=== PATIENT | male | born 1965 | race Two or more races ===

== ENCOUNTER 2018-09-25 21:31 | Emergency (ER) | payer MEDICARE, MEDICAID ==
[~2018-09-25] VITALS: Ht 188 cm; Wt 74.8 kg
[~2018-09-25 21:31] MED LIST: ACET1TAB12 PO; DALF10TA PO; INTE44DI SQ; PRED10TA PO; VITAMIN D2 PO; [UNRECOGNIZED DRUG - OTHER] PO
[2018-09-25] MEDS ORDERED: [UNRECOGNIZED DRUG - REMARK] (21:47)
[2018-09-25] MEDS ORDERED: MIRA25TA PO (21:50)
--- NOTE | 2018-09-25 23:07 | NUR ---
Pt provided urine sample, sent to lab.
[2018-09-25 23:11] LABS: *BILIRUBIN,URIN NEGATIVE (NEGATIVE); *BLOOD, URINE NEGATIVE (NEGATIVE); *CLARITY,URINE CLOUDY (CLEAR); *COLOR,URINE YELLOW (YELLOW); *KETONES,URINE NEGATIVE (NEGATIVE); LEUKOCYTE ESTERASE ,URINE NEGATIVE (NEGATIVE); NITRITE, URINE NEGATIVE (NEGATIVE); UGLUCOSE NEGATIVE (NEGATIVE)
[2018-09-25 23:18] LABS: BACTERIA,URINE NONE SEEN /HPF (NONE SEEN); MUCUS,URINE FEW /LPF (0-FEW); RBC,URINE 0-3 /HPF (0-3); SQUAMOUS EPITHELIAL CELL,UR FEW /HPF (NONE SEEN); URINE AMORPHOUS PHOSPHATES MODERATE /HPF; WBC,URINE 0-3 /HPF (0-3)
--- NOTE | 2018-09-25 23:37 | NUR ---
Patient discharged to home in stable conditon. Written and verbal after care instructions given. Patient verbalizes understanding of instructions. Pt ambulated out of ER with walker, no falls noted, accompanied by family, no acute signs of distress, VSS, all belongings taken.
[2018-09-25 23:38] VITALS: BP 105/72
== END 2018-09-25 23:39 | disposition home or self-care (01) ==
LOC: ER 21:33
DX: R32 Unspecified urinary incontinence (principal); Z79.899 Other long term (current) drug therapy
CPT/HCPCS: A4663